=== PATIENT | female | born 1975 | race Asian ===

== ENCOUNTER → 2020-03-01 | Outpatient (CLI) | payer OTHER ==
--- NOTE | 2020-03-01 13:10 | RAD ---
CT HEAD WO CONTRAST Date: 03/01/2020 1:00 PM Clinical Indication: Reason: POST TRAUMATIC HEADACHE, FALL TODAY, HIT BACK OF HEAD / Spl. Instructions: / History: Comparison: None. Technique: 5 mm axial tomographic images were obtained of the head without contrast. These were viewed on brain and bone windows. One or more of the following dose reduction techniques were utilized: Automated exposure control (AEC), Adjustment of mA and/or kV according to patient size, Use of iterative reconstruction technique such as ASiR, CT scan done according to ALARA and image gently/image wisely Findings: The brain parenchyma is normal in attenuation. No intra- or extra-axial mass or fluid collection. No acute hemorrhage. The ventricles are normal in size, shape, and morphology. The mann-white matter junction is normal. The subarachnoid cisterns are patent. The visualized paranasal sinuses are normal. The visualized portions of the orbits and globes are normal. The mastoid air cells are clear. The brim molder topogram shows no lytic lesion or fracture. Impression: No acute intracranial process. Electronically signed by: Ferny Núñez MD (03/01/2020 1:07 PM) [id number]
== END | disposition home or self-care (01) ==
LOC: CT 12:42
PROVIDERS: ATTEND Preventive Medicine Occupational Medicine
DX: G44.319 Acute post-traumatic headache, not intractable (principal)
CPT/HCPCS: 70450